=== PATIENT | female | born 1955 | race Caucasian/White ===

== ENCOUNTER 2016-12-23 07:16 | Observation (INO) | payer SELFPAY ==
[~2016-12-23] VITALS: Ht 154.9 cm; Wt 61.0 kg
[~2016-12-23 07:16] MED LIST: CEPH500C3 PO
[2016-12-23 07:20] VITALS: BP 119/63; PULSE 77; RESP 12; TEMP 98.6; O2SAT 97
[2016-12-23] MEDS ORDERED: LISI10TA3 PO (07:37)
[2016-12-23] MEDS ORDERED: ASPIRIN 325 MG TAB PO ONE (07:45)
[2016-12-23 08:03] LABS: AUTOMATED NEUTROPHIL # 3.3 TH/MM3 (1.8-7.7); BASOPHIL # 0.1 TH/MM3 (0-0.2); BASOPHIL % 0.8 % (0.0-2.0); EOSINOPHIL # 0.1 TH/MM3 (0-0.4); EOSINOPHIL % 1.3 % (0.0-4.0); HEMATOCRIT 40.5 % (35.0-46.0); HEMO FLAGS DIFF FINAL; LYMPH % 43.1 % (9.0-44.0); MEAN CELL VOLUME 87.5 FL (80.0-100.0); MEAN CORPUSCULAR HEMOGLOBIN 29.6 PG (27.0-34.0); MEAN CORPUSCULAR HGB CONC 33.8 % (32.0-36.0); NEUT % 47.8 % (16.0-70.0); PLATELET COUNT 241 TH/MM3 (150-450); RED BLOOD COUNT 4.63 MIL/MM3 (4.00-5.30); RED CELL DISTRIBUTION WIDTH 13.7 % (11.6-17.2); WHITE BLOOD COUNT 6.9 TH/MM3 (4.0-11.0)
--- NOTE | 2016-12-23 08:03 | PD ---
HPI Chief Complaint: Chest Pain Time Seen by Provider: 07:36 Travel History International Travel<30 days: No Contact w/Intl Traveler<30days: No Traveled to known affect area: No History of Present Illness HPI 61yo F with PMH of HTN presents to the ED with c/o chest pain for 2 days. Chest pain is midsternal, intermittent and associated with nausea and sob. Had some tingling in left fingers. Chest pain lasts minutes at a time and worst with exertion. Denies any fever, cough, vomiting, abdominal pain, focal weakness or numbness. Denies any cig smoking, cocaine use or history of heart attacks. Pt has never had this pain before. PFSH Past Medical History Hypertension: Yes Past Surgical History Gynecologic Surgery: Yes (caesarian) Other Surgery: Yes (laproscopic shoulders) Social History Alcohol Use: No Tobacco Use: No Substance Use: No Allergies-Medications (Allergen,Severity, Reaction): Coded Allergies: Latex (Verified Allergy, Unknown, Anaphylaxis, 12/23/16) Reported Meds & Prescriptions Reported Meds & Active Scripts Active Reported Lisinopril 10 Mg Tab 10 Mg PO DAILY Review of Systems Except as stated in HPI: all other systems reviewed are Neg Physical Exam Narrative GENERAL: 61yo F not in distress. SKIN: Focused skin assessment warm/dry. HEAD: Atraumatic. Normocephalic. EYES: Pupils equal and round. No scleral icterus. No injection or drainage. ENT: No nasal bleeding or discharge. Mucous membranes pink and moist. NECK: Trachea midline. No JVD. CARDIOVASCULAR: Regular rate and rhythm. No murmur appreciated. RESPIRATORY: No accessory muscle use. Clear to auscultation. GASTROINTESTINAL: Abdomen soft, non-tender, nondistended. No rebound tenderness or guarding. MUSCULOSKELETAL: No obvious deformities. No clubbing. No cyanosis. No edema. NEUROLOGICAL: Awake and alert. No obvious cranial nerve deficits. Motor grossly within normal limits. Normal speech. PSYCHIATRIC: Appropriate mood and affect; insight and judgment normal. Data Data Last Documented VS Vital Signs Date Time Temp Pulse Resp B/P Pulse Ox O2 Delivery O2 Flow Rate FiO2 12/23/16 07:31 69 19 97 Nasal Cannula 2 12/23/16 07:20 98.6 119/63 Orders Basic Metabolic Panel (Bmp) (12/23/16 07:44) Ckmb (Isoenzyme) Profile (12/23/16 07:44) Complete Blood Count With Diff (12/23/16 07:44) Magnesium (Mg) (12/23/16 07:44) Prothrombin Time / Inr (Pt) (12/23/16 07:44) Act Partial Throm Time (Ptt) (12/23/16 07:44) Troponin I (12/23/16 07:44) Lipase (12/23/16 07:44) Chest, Single Ap (12/23/16 07:44) Aspirin (Aspirin) (12/23/16 07:45) Labs Laboratory Tests Test 12/23/16 07:51 White Blood Count 6.9 TH/MM3 Red Blood Count 4.63 MIL/MM3 Hemoglobin 13.7 GM/DL Hematocrit 40.5 % Mean Corpuscular Volume 87.5 FL Mean Corpuscular Hemoglobin 29.6 PG Mean Corpuscular Hemoglobin 33.8 % Concent Red Cell Distribution Width 13.7 % Platelet Count 241 TH/MM3 Mean Platelet Volume 9.9 FL Neutrophils (%) (Auto) 47.8 % Lymphocytes (%) (Auto) 43.1 % Monocytes (%) (Auto) 7.0 % Eosinophils (%) (Auto) 1.3 % Basophils (%) (Auto) 0.8 % Neutrophils # (Auto) 3.3 TH/MM3 Lymphocytes # (Auto) 3.0 TH/MM3 Monocytes # (Auto) 0.5 TH/MM3 Eosinophils # (Auto) 0.1 TH/MM3 Basophils # (Auto) 0.1 TH/MM3 CBC Comment DIFF FINAL Differential Comment Prothrombin Time 10.6 SEC Prothromb Time International 1.0 RATIO Ratio Activated Partial 24.5 SEC Thromboplast Time Sodium Level 143 MEQ/L Potassium Level 3.9 MEQ/L Chloride Level 110 MEQ/L Carbon Dioxide Level 25.3 MEQ/L Anion Gap 8 MEQ/L Blood Urea Nitrogen 17 MG/DL Creatinine 0.59 MG/DL Estimat Glomerular Filtration 104 ML/MIN Rate Random Glucose 85 MG/DL Calcium Level 8.4 MG/DL Magnesium Level 2.4 MG/DL Total Creatine Kinase 48 U/L Troponin I LESS THAN 0.02 NG/ML Lipase 250 U/L MDM Medical Decision Making Medical Screen Exam Complete: Yes Emergency Medical Condition: Yes Interpretation(s) EKG: NSR 70bpm. 1st AV block. Normal axis. Q wave V1, V2. No ST segment elevation or depression. Laboratory Tests Test 12/23/16 07:51 White Blood Count 6.9 TH/MM3 (4.0-11.0) Red Blood Count 4.63 MIL/MM3 (4.00-5.30) Hemoglobin 13.7 GM/DL (11.6-15.3) Hematocrit 40.5 % (35.0-46.0) Mean Corpuscular Volume 87.5 FL (80.0-100.0) Mean Corpuscular Hemoglobin 29.6 PG (27.0-34.0) Mean Corpuscular Hemoglobin 33.8 % Concent (32.0-36.0) Red Cell Distribution Width 13.7 % (11.6-17.2) Platelet Count 241 TH/MM3 (150-450) Mean Platelet Volume 9.9 FL (7.0-11.0) Neutrophils (%) (Auto) 47.8 % (16.0-70.0) Lymphocytes (%) (Auto) 43.1 % (9.0-44.0) Monocytes (%) (Auto) 7.0 % (0.0-8.0) Eosinophils (%) (Auto) 1.3 % (0.0-4.0) Basophils (%) (Auto) 0.8 % (0.0-2.0) Neutrophils # (Auto) 3.3 TH/MM3 (1.8-7.7) Lymphocytes # (Auto) 3.0 TH/MM3 (1.0-4.8) Monocytes # (Auto) 0.5 TH/MM3 (0-0.9) Eosinophils # (Auto) 0.1 TH/MM3 (0-0.4) Basophils # (Auto) 0.1 TH/MM3 (0-0.2) CBC Comment DIFF FINAL Differential Comment Prothrombin Time 10.6 SEC (9.8-11.6) Prothromb Time International 1.0 RATIO Ratio Activated Partial 24.5 SEC Thromboplast Time (24.3-30.1) Sodium Level 143 MEQ/L (136-145) Potassium Level 3.9 MEQ/L (3.5-5.1) Chloride Level 110 MEQ/L (98-107) Carbon Dioxide Level 25.3 MEQ/L (21.0-32.0) Anion Gap 8 MEQ/L (5-15) Blood Urea Nitrogen 17 MG/DL (7-18) Creatinine 0.59 MG/DL (0.50-1.00) Estimat Glomerular Filtration 104 ML/MIN Rate (>89) Random Glucose 85 MG/DL (74-106) Calcium Level 8.4 MG/DL (8.5-10.1) Magnesium Level 2.4 MG/DL (1.5-2.5) Total Creatine Kinase 48 U/L (26-192) Troponin I LESS THAN 0.02 NG/ML (0.02-0.05) Lipase 250 U/L (73-393) Last Impressions Chest X-Ray 12/23/16 5761 Signed Impressions: Service Date/Time: Friday, December 23, 2016 08:02 - CONCLUSION: 1. No acute cardiopulmonary findings. Elliott Bundy MD Differential Diagnosis ACS vs. GERD vs. musculoskeletal pain Narrative Course 61yo F with typical chest pain that is worst with exertion. Pt is low risk but does have HTN and is 61yo. She has never had any cardiac work up. Labs reviewed, no leukocytosis. Troponin negative. Lipase normal. CXR negative. VS stable. Pt given aspirin 325mg PO and reevaluated at bedside. Pt feels better and currently has no chest pain. Will admit pt to chest pain center for serial EKG and cardiac enzyme. Diagnosis Primary Impression: Chest pain Qualified Code: R07.9 - Chest pain, unspecified type Admitting Information Admitting Physician Requests: Savannah Andres DO Dec 23, 2016 08:03
[2016-12-23 08:11] LABS: APTT (PATIENT) 24.5 SEC (24.3-30.1); PROTHROMBIN TIME - PATIENT 10.6 SEC (9.8-11.6)
[2016-12-23 08:21] LABS: ANION GAP 8 MEQ/L (5-15); BICARBONATE 25.3 MEQ/L (21.0-32.0); BLOOD UREA NITROGEN 17 MG/DL (7-18); CHLORIDE 110 MEQ/L (98-107); GLOMERULAR FILTRATION RATE 104 ML/MIN (>89); MAGNESIUM 2.4 MG/DL (1.5-2.5); POTASSIUM 3.9 MEQ/L (3.5-5.1); SODIUM (NA) 143 MEQ/L (136-145)
--- NOTE | 2016-12-23 08:32 | RADRPT ---
EXAM DATE/TIME: 12/23/2016 08:02 [facility] COMPARISON: No previous studies available for comparison. INDICATIONS : Chest pain, shortness of breath. MEDICAL HISTORY : Hypertension. SURGICAL HISTORY : None. ENCOUNTER: Initial ACUITY: 2 days PAIN SCORE: 10/10 LOCATION: Left chest under breast. FINDINGS: A single view of the chest demonstrates the lungs to be symmetrically aerated without evidence of mas s, infiltrate or effusion. The cardiomediastinal contours are unremarkable. Osseous structures are intact. CONCLUSION: 1. No acute cardiopulmonary findings. Elliott Bundy MD on December 23, 2016 at 8:30 Board Certified Radiologist. This report was verified electronically.
[2016-12-23 08:35] LABS: CREATINE KINASE 48 U/L (26-192)
--- NOTE | 2016-12-23 09:12 | HHI.HP ---
HPI Primary Care Physician No Primary Care Physician Chief Complaint Chest pain History of Present Illness This is a 61-year-old female with primary language of Albanian but does also speak Lebanese that presents to ED with a complaint of 2 days of intermittent left-sided chest discomfort. She describes a heaviness. We'll last about 30 minutes. On one occasion occurred while she is doing some gardening. We'll shortness of breath. No nausea or diaphoresis. Has history of hypertension and takes lisinopril for that. Thinks she may been told one point she has hyperlipidemia but does not take medication for that. Only family history of CAD is with her father. She states her father had [place] at age 94. Patient is a lifetime nonsmoker. She has had a nonproductive cough intermittently over the last week. Last episode of chest discomfort was 2 days ago. Review of Systems General: Patient denies fevers, chills recent, and recent travel HEENT: Patient denies headache, sore throat, difficulty swallowing. Cardiovascular: Has the chest discomfort as mentioned above. Denies sensation of heart beating rapidly or irregularly. No syncope. Respiratory: Intermittent shortness of breath. She also has had a nonproductive cough intermittently for the last week. Denies inspirational chest discomfort. Denies wheezing or hemoptysis. GI: Patient denies nausea, vomiting, diarrhea, abdominal pain, bloody stools. Musculoskeletal: Patient denies joint pain or edema. Denies calf pain or edema. Neurovascular: Patient denies numbness, tingling, weakness in extremities. Denies headache. Endocrine: Denies polyuria and polydipsia. Hematologic: Denies easy bruising. Skin: Denies rash or itching. Past Family Social History Allergies: Coded Allergies: Latex (Verified Allergy, Unknown, Anaphylaxis, 12/23/16) Past Medical History Hypertension. Questionable hyperlipidemia. Denies diabetes and CAD. Lifetime nonsmoker. Past Surgical History and bilateral shoulders. Reported Medications Reported Meds & Active Scripts Active Reported Lisinopril 10 Mg Tab 10 Mg PO DAILY Active Ordered Medications Current Medications Medications (Trade) Dose Ordered Sig/Donna Route Start Time Stop Time Status Last Admin (NS Flush) 2 ml UNSCH PRN IVF 12/23/16 09:15 UNV (NS Flush) 2 ml BID IVF 12/23/16 21:00 UNV Family History Follow had an [place] at age 89. Social History Patient is a lifetime nonsmoker. Denies alcohol or illicit drugs. Physical Exam Vital Signs Vital Signs Date Time Temp Pulse Resp B/P Pulse Ox O2 Delivery O2 Flow Rate FiO2 12/23/16 07:31 69 19 97 Nasal Cannula 2 12/23/16 07:20 98.6 77 12 119/63 97 Physical Exam GENERAL: This is a well-nourished, well-developed patient, in no apparent distress. Patient speaks in clear complete sentences. Patient is pleasant. HEENT: Head is atraumatic and normocephalic. Neck is supple without lymphadenopathy and trachea is midline. No JVD or carotid bruits. CARDIOVASCULAR: Regular rate and rhythm without murmurs, gallops, or rubs. RESPIRATORY: Clear to auscultation. Breath sounds equal bilaterally. No wheezes , rales, or rhonchi. Chest wall is nontender. No use of accessory muscles. GASTROINTESTINAL: Abdomen is nontender, nondistended. Abdomen soft. No obvious pulsatile mass or bruit. No CVA tenderness. Strong femoral pulses bilaterally. Normal bowel sounds in all quadrants. MUSCULOSKELETAL: Patient is moving upper and lower extremities freely. No calf tenderness or edema, no Homans sign. Strong pulses in upper and lower extremities. NEUROLOGICAL: Patient is alert and oriented. Cranial nerves 2-12 are grossly intact. No focal deficits and speech is clear. SKIN: No rash and turgor is normal. Laboratory Laboratory Tests Test 12/23/16 07:51 White Blood Count 6.9 Red Blood Count 4.63 Hemoglobin 13.7 Hematocrit 40.5 Mean Corpuscular Volume 87.5 Mean Corpuscular Hemoglobin 29.6 Mean Corpuscular Hemoglobin 33.8 Concent Red Cell Distribution Width 13.7 Platelet Count 241 Mean Platelet Volume 9.9 Neutrophils (%) (Auto) 47.8 Lymphocytes (%) (Auto) 43.1 Monocytes (%) (Auto) 7.0 Eosinophils (%) (Auto) 1.3 Basophils (%) (Auto) 0.8 Neutrophils # (Auto) 3.3 Lymphocytes # (Auto) 3.0 Monocytes # (Auto) 0.5 Eosinophils # (Auto) 0.1 Basophils # (Auto) 0.1 CBC Comment DIFF FINAL Differential Comment Prothrombin Time 10.6 Prothromb Time International 1.0 Ratio Activated Partial 24.5 Thromboplast Time Sodium Level 143 Potassium Level 3.9 Chloride Level 110 Carbon Dioxide Level 25.3 Anion Gap 8 Blood Urea Nitrogen 17 Creatinine 0.59 Estimat Glomerular Filtration 104 Rate Random Glucose 85 Calcium Level 8.4 Magnesium Level 2.4 Total Creatine Kinase 48 Troponin I LESS THAN 0.02 Lipase 250 Result Diagram: 12/23/16 0751 12/23/16 0751 Imaging Last Impressions Chest X-Ray 12/23/16 0744 Signed Impressions: Service Date/Time: Friday, December 23, 2016 08:02 - CONCLUSION: 1. No acute cardiopulmonary findings. Elliott Bundy MD Course Initial EKG has sinus rhythm without significant ST segment depressions or elevations. Assessment and Plan Assessment and Plan * Atypical chest pain: Patient will continue to have serial cardiac enzymes and EKGs for ruling out purposes. She has been seen by Dr. Sands of cardiology in the chest pain center and will undergo ETT if she rules out. Patient will be discharged home if her stress test were to be nonischemic and will be instructed to follow-up with her primary care physician. * Hypertension: Continue current medication. Patient is stable at this time. She is agreeable to this plan. Travon Christopher Dec 23, 2016 09:12
[2016-12-23] MEDS ORDERED: ACETAMINOPHEN 500 MG CPLT PO PRN (09:15)
[2016-12-23] MEDS ORDERED: ONDANSETRON HCL 4 MG/2 ML VIAL IV PRN (09:15)
[2016-12-23] MEDS ORDERED: SODIUM CHLORIDE 0.9% FLUSH 5 ML FLUSH IVF PRN (09:15)
[2016-12-23] MEDS ORDERED: ACETAMINOPHEN/HYDROcodone 325 MG/7.5 MG TAB PO PRN (09:15)
[2016-12-23 09:24] VITALS: BP 128/62; PULSE 70; RESP 18; O2SAT 97
[2016-12-23 10:14] VITALS: BP 119/57; PULSE 69; RESP 18; TEMP 97.4; O2SAT 95
[2016-12-23 11:18] LABS: CREATINE KINASE 44 U/L (26-192)
--- NOTE | 2016-12-23 12:04 | HHI.DCPOC ---
Discharge Care Plan Diagnosis: (1) Chest pain (2) Hypertension Goals to Promote Your Health * To prevent worsening of your condition and complications * To maintain your health at the optimal level Directions to Meet Your Goals Take your medications as prescribed Follow your dietary instruction Follow activity as directed Keep your appointments as scheduled Take your immunizations and boosters as scheduled If your symptoms worsen call your PCP, if no PCP go to Urgent Care Center or Emergency Room Smoking is Dangerous to Your Health. Avoid second hand smoke Call the 24-hour hour crisis hotline for domestic abuse at Travon Christopher Dec 23, 2016 12:04
--- NOTE | 2016-12-23 15:40 | EKG ---
Date Performed: 12/23/2016 Time Performed: 07:30:25 PTAGE: 61 years EKG: Sinus rhythm WITH FIRST DEGREE AV BLOCK ABNORMAL ECG NO PREVIOUS TRACING DOCTOR: Neyda Sands Interpretating Date/Time 12/23/2016 15:38:31
--- NOTE | 2016-12-23 15:40 | EKG ---
Date Performed: 12/23/2016 Time Performed: 11:09:50 PTAGE: 61 years EKG: Sinus rhythm NORMAL ECG Since previous tracing, no significant change noted NO PREVIOUS TRACING DOCTOR: Neyda Sands Interpretating Date/Time 12/23/2016 15:38:53
--- NOTE | 2016-12-23 15:40 | TR ---
Date Performed: 12/23/2016 Time Performed: 11:48:43 DOCTOR: Neyda Sands DRUG LIST: CLINICAL HISTORY: JAMES PAIN REASON FOR TEST: REASON FOR ENDING: OBSERVATION: CONCLUSION: CONNIE PROTOCOL CONVERTED TO MANUAL. NO CP. TEST STOPPED AFTER REACHING GOAL HR SECON JUDIT TO SOB AND LEG FATIGUE.Maximum PG=517 % Max HR Achieved=89.0% Maximum DE=265/80 Total Exercise T pedro=5:31 COMMENTS:
[2016-12-23] MEDS ORDERED: SODIUM CHLORIDE 0.9% FLUSH 5 ML FLUSH IVF SCH (21:00)
[2016-12-24] MEDS ORDERED: ASPIRIN 325 MG TAB PO SCH (09:00)
== END 2016-12-23 12:51 | disposition home or self-care (01) ==
LOC: NEPC 07:16 → NEDA 08:48 → NEPHCDU 09:53 → UNDODISOB 12:51
PROVIDERS: ADMIT Internal Medicine Interventional Cardiology; ATTEND Internal Medicine Interventional Cardiology
DX: R07.89 Other chest pain (principal); I10 Essential (primary) hypertension; Z91.040 Latex allergy status; Z82.49 Family history of ischemic heart disease and other diseases of the circulatory system
CPT/HCPCS: 71010; 80048; 82550; 83690; 83735; 84484; 85025; 85610; 85730; 93005; 93017; 99285; G0378

== ENCOUNTER 2017-08-27 16:56 | Observation (INO) | payer OTHER ==
[~2017-08-27] VITALS: Ht 152.4 cm; Wt 61.6 kg
[~2017-08-27 16:56] MED LIST changes: -CEPH500C3 PO; +LISI10TA3 PO
[2017-08-27 16:57] VITALS: BP 130/63; PULSE 101; RESP 16; TEMP 98; O2SAT 96
[2017-08-27 18:07] VITALS: BP 187/75; PULSE 96; RESP 18; O2SAT 97
[2017-08-27 18:08] VITALS: BP 187/75; PULSE 96; RESP 18; O2SAT 96
[2017-08-27] MEDS ORDERED: ONDANSETRON HCL 4 MG/2 ML VIAL IV PUSH ONE (18:15)
[2017-08-27] MEDS ORDERED: SODIUM CHLORIDE 0.9% FLUSH 10 ML FLUSH IV FLUSH PRN ×2 (18:15→21:30)
[2017-08-27] MEDS ORDERED: SODIUM CHLOR 0.9% 1000 ML INJ 1,000 ML IV ONE (18:15)
[2017-08-27] MEDS ORDERED: MORPHINE SULFATE 2 MG/ML INJ IV PUSH ONE (18:15)
--- NOTE | 2017-08-27 18:17 | PD ---
HPI Chief Complaint: Abdominal Pain Time Seen by Provider: 18:09 Travel History International Travel<30 days: Yes Contact w/Intl Traveler<30days: Yes Name of Country Traveled to: [place] Traveled to known affect area: No History of Present Illness HPI 62-year-old female patient with history of previous , presents to the ER today because of 2 days history of left upper quadrant abdominal pains which she currently measures at a 7 out of 10, nausea, worse with trying to make a bowel movement. She denies any fevers, urinary symptoms, unusual discharge, or any other issues. She states that she was seen by urgent care and told to come to the ER for further evaluation. Modifying Factors: None Associated Signs & Symptoms: Left lower quadrant abdominal pain with nausea Risk Factors: None PFSH Past Medical History Medical History: Denies Significant Hx Diabetes: Yes (Diet control) Patient Takes Glucophage: No Hypertension: Yes Influenza Vaccination: No ?: Not Past Surgical History Section: Yes Gynecologic Surgery: Yes (caesarian) Other Surgery: Yes (laproscopic shoulders; BREAST AUGMENTATION) Social History Alcohol Use: No Tobacco Use: No Substance Use: No Allergies-Medications (Allergen,Severity, Reaction): Coded Allergies: latex (Unverified Allergy, Unknown, Anaphylaxis, 08/27/17) Reported Meds & Prescriptions Reported Meds & Active Scripts Active Reported Lisinopril 10 Mg Tab 10 Mg PO DAILY Review of Systems Except as stated in HPI: all other systems reviewed are Neg Physical Exam Narrative GENERAL: Well-developed elderly female patient currently in mild distress. Awake and oriented 3. SKIN: Focused skin assessment warm/dry. HEAD: Atraumatic. Normocephalic. EYES: Pupils equal and round. No scleral icterus. No injection or drainage. ENT: No nasal bleeding or discharge. Mucous membranes pink and moist. NECK: Trachea midline. No JVD. CARDIOVASCULAR: Regular rate and rhythm. No murmur appreciated. RESPIRATORY: No accessory muscle use. Clear to auscultation. Breath sounds equal bilaterally. GASTROINTESTINAL: Abdomen soft, left lower quadrant tenderness without guarding or rebound, nondistended. Hepatic and splenic margins not palpable. MUSCULOSKELETAL: No obvious deformities. No clubbing. No cyanosis. No edema. NEUROLOGICAL: Awake and alert. No obvious cranial nerve deficits. Motor grossly within normal limits. Normal speech. PSYCHIATRIC: Appropriate mood and affect; insight and judgment normal. Data Data Last Documented VS Vital Signs Date Time Temp Pulse Resp B/P (MAP) Pulse Ox O2 Delivery O2 Flow Rate FiO2 08/27/17 18:08 18 08/27/17 18:08 96 187/75 (112) 96 Room Air 08/27/17 16:57 98.0 Orders Orders Complete Blood Count With Diff (08/27/17 18:05) Comprehensive Metabolic Panel (08/27/17 18:05) Lipase (08/27/17 18:05) Urinalysis - C+S If Indicated (08/27/17 18:05) Iv Access Insert/Monitor (08/27/17 18:05) Ecg Monitoring (08/27/17 18:05) Oximetry (08/27/17 18:05) Sodium Chloride 0.9% Flush (Ns Flush) (08/27/17 18:15) Sodium Chlor 0.9% 1000 Ml Inj (Ns 1000 M (08/27/17 18:15) Ondansetron Inj (Zofran Inj) (08/27/17 18:15) Morphine Inj (Morphine Inj) (08/27/17 18:15) Ct Abd/Pel W Iv Contrast(Rout) (08/27/17 18:42) Urine Culture (08/27/17 18:15) Labs Laboratory Tests Test 08/27/17 18:15 White Blood Count 16.0 TH/MM3 Red Blood Count 4.74 MIL/MM3 Hemoglobin 14.5 GM/DL Hematocrit 42.3 % Mean Corpuscular Volume 89.1 FL Mean Corpuscular Hemoglobin 30.5 PG Mean Corpuscular Hemoglobin Concent 34.2 % Red Cell Distribution Width 13.5 % Platelet Count 251 TH/MM3 Mean Platelet Volume 9.9 FL Neutrophils (%) (Auto) 76.1 % Lymphocytes (%) (Auto) 15.5 % Monocytes (%) (Auto) 7.6 % Eosinophils (%) (Auto) 0.4 % Basophils (%) (Auto) 0.4 % Neutrophils # (Auto) 12.2 TH/MM3 Lymphocytes # (Auto) 2.5 TH/MM3 Monocytes # (Auto) 1.2 TH/MM3 Eosinophils # (Auto) 0.1 TH/MM3 Basophils # (Auto) 0.1 TH/MM3 CBC Comment DIFF FINAL Differential Comment Urine Color YELLOW Urine Turbidity CLEAR Urine pH 5.5 Urine Specific Barton 1.022 Urine Protein TRACE mg/dL Urine Glucose (UA) NEG mg/dL Urine Ketones TRACE mg/dL Urine Occult Blood TRACE Urine Nitrite NEG Urine Bilirubin NEG Urine Urobilinogen LESS THAN 2.0 MG/DL Urine Leukocyte Esterase SMALL Urine RBC 1 /hpf Urine WBC 14 /hpf Urine Squamous Epithelial Cells 3 /hpf Urine Mucus FEW /lpf Microscopic Urinalysis Comment CULTURE INDICATED Blood Urea Nitrogen 12 MG/DL Creatinine 0.64 MG/DL Random Glucose 94 MG/DL Total Protein 8.0 GM/DL Albumin 3.4 GM/DL Calcium Level 8.5 MG/DL Alkaline Phosphatase 112 U/L Aspartate Amino Transf (AST/SGOT) 52 U/L Alanine Aminotransferase (ALT/SGPT) 42 U/L Total Bilirubin 0.5 MG/DL Sodium Level 139 MEQ/L Potassium Level 4.2 MEQ/L Chloride Level 107 MEQ/L Carbon Dioxide Level 24.8 MEQ/L Anion Gap 7 MEQ/L Estimat Glomerular Filtration Rate 94 ML/MIN Lipase 189 U/L [facility] Medical Decision Making Medical Screen Exam Complete: Yes Emergency Medical Condition: Yes Medical Record Reviewed: Yes Interpretation(s) Laboratory Tests Test 08/27/17 18:15 White Blood Count 16.0 TH/MM3 (4.0-11.0) Neutrophils (%) (Auto) 76.1 % (16.0-70.0) Neutrophils # (Auto) 12.2 TH/MM3 (1.8-7.7) Monocytes # (Auto) 1.2 TH/MM3 (0-0.9) Urine Ketones TRACE mg/dL (NEG) Urine Occult Blood TRACE (NEG) Urine Leukocyte Esterase SMALL (NEG) Urine WBC 14 /hpf (0-5) Urine Mucus FEW /lpf (OCC) Aspartate Amino Transf (AST/SGOT) 52 U/L (15-37) Differential Diagnosis Left lower quadrant abdominal pains, nausea: Gastroenteritis versus colitis versus diverticulitis versus renal colic versus pyelonephritis Narrative Course Lab work, IV fluids, and pain medications and Zofran were given in the ER. CAT scan ordered for further evaluation. Physician Communication Physician Communication Case is signed out to Dr. Yi at 7 PM pending CAT scan. Disposition based on CAT scan. Diagnosis Primary Impression: Abdominal pain Condition: Stable Dorcas Ashby MD Aug 27, 2017 18:17
[2017-08-27 18:39] LABS: AUTOMATED NEUTROPHIL # 12.2 TH/MM3 (1.8-7.7); BASOPHIL # 0.1 TH/MM3 (0-0.2); BASOPHIL % 0.4 % (0.0-2.0); EOSINOPHIL # 0.1 TH/MM3 (0-0.4); EOSINOPHIL % 0.4 % (0.0-4.0); HEMATOCRIT 42.3 % (35.0-46.0); HEMO FLAGS DIFF FINAL; LYMPH % 15.5 % (9.0-44.0); LYMPHOCYTE # 2.5 TH/MM3 (1.0-4.8); MEAN CELL VOLUME 89.1 FL (80.0-100.0); MEAN CORPUSCULAR HEMOGLOBIN 30.5 PG (27.0-34.0); MEAN CORPUSCULAR HGB CONC 34.2 % (32.0-36.0); MONO % 7.6 % (0.0-8.0); NEUT % 76.1 % (16.0-70.0); PLATELET COUNT 251 TH/MM3 (150-450); RED BLOOD COUNT 4.74 MIL/MM3 (4.00-5.30); RED CELL DISTRIBUTION WIDTH 13.5 % (11.6-17.2)
[2017-08-27 18:45] LABS: BLOOD, URINE TRACE (NEG); COMMENT (UR) CULTURE INDICATED; CULTURE IF INDICATED CULTURE INDICATED; GLUCOSE,URINE NEG (NEG); KETONE, URINE TRACE mg/dL (NEG); MUCUS URINE FEW /lpf (OCC); NITRITE,URINE NEG (NEG); PH, URINE 5.5 (5.0-8.5); SQUAMOUS EPITHELIAL CELL URINE 3 /hpf (0-5); URINE COLOR YELLOW (YELLW/STRAW)
[2017-08-27 18:55] LABS: ALT (GPT) 42 U/L (10-53)
[2017-08-27 18:57] LABS: ALKALINE PHOSPHATASE 112 U/L (45-117); TOTAL BILIRUBIN ADULT 0.5 MG/DL (0.2-1.0)
[2017-08-27 18:59] LABS: ANION GAP 7 MEQ/L (5-15); AST (GOT) 52 U/L (15-37); BICARBONATE 24.8 MEQ/L (21.0-32.0); BLOOD UREA NITROGEN 12 MG/DL (7-18); CHLORIDE 107 MEQ/L (98-107); GLOMERULAR FILTRATION RATE 94 ML/MIN (>89); SODIUM (NA) 139 MEQ/L (136-145)
[2017-08-27 19:00] LABS: POTASSIUM 4.2 MEQ/L (3.5-5.1)
[2017-08-27] MEDS ORDERED: IOHEXOL 350 MG/ML 10 ML VIAL (for RAD DIAG) IVCONTRAST ONE (19:30)
--- NOTE | 2017-08-27 20:05 | RADRPT ---
EXAM DATE/TIME: 08/27/2017 19:30 [facility] COMPARISON: No previous studies available for comparison. INDICATIONS : Left lower quadrant pain. IV CONTRAST: 99 cc Omnipaque 350 (iohexol) IV ORAL CONTRAST: No oral contrast ingested. RADIATION DOSE: 6.34 CTDIvol (mGy) MEDICAL HISTORY : Hypertension. SURGICAL HISTORY : section. ENCOUNTER: Initial ACUITY: 1 day PAIN SCALE: 2/10 LOCATION: Left Abdomen TECHNIQUE: Volumetric scanning of the abdomen and pelvis was performed. Using automated exposure control and ad justment of the mA and/or kV according to patient size, radiation dose was kept as low as reasonably achievable to obtain optimal diagnostic quality images. DICOM format image data is available electro nically for review and comparison. FINDINGS: LOWER LUNGS: The visualized lower lungs are clear. LIVER: There is an 8 mm low-density lesion within the right lobe of the liver posteriorly which is indetermi susan. There is no dilation of the biliary tree. No calcified gallstones. SPLEEN: Normal size without lesion. PANCREAS: Within normal limits. KIDNEYS: Normal in size and shape. There is no mass, stone or hydronephrosis. ADRENAL GLANDS: Within normal limits. VASCULAR: There is no aortic aneurysm. BOWEL/MESENTERY: There is evidence of wall thickening and pericolic inflammatory changes surrounding the proximal sigm oid colon consistent with acute diverticulitis. No pericolic abscess is noted. No bowel obstruction i s noted. The appendix is normal. ABDOMINAL WALL: Within normal limits. RETROPERITONEUM: There is no lymphadenopathy. BLADDER: No wall thickening or mass. REPRODUCTIVE: Within normal limits. INGUINAL: There is no lymphadenopathy or hernia. MUSCULOSKELETAL: Mild degenerative changes and scoliosis of the thoraco-lumbar spine are noted. CONCLUSION: 1. Wall thickening and pericolic inflammatory changes surrounding the proximal sigmoid colon consiste nt with acute diverticulitis. No pericolic abscess is noted. 2. 8 mm low-density lesion within the right lobe of the liver posteriorly which is indeterminate due to its small size. 3. Mild degenerative changes and scoliosis of the thoraco lumbar spine. Hany Patterson MD on August 27, 2017 at 19:59 Board Certified Radiologist. This report was verified electronically.
--- NOTE | 2017-08-27 20:27 | PD ---
Physical Exam Date Seen by Provider: Aug 27, 2017 Time Seen by Provider: 20:25 Narrative 62-year-old female was sent to the emergency room from the urgent care for left lower quadrant pain. She was seen by the previous ER physician. Please refer to her history and physical for further details. Sign out was to follow-up on the CAT scan result. Patient has significant leukocytosis. CAT scan report came back and is suggestive of acute diverticulitis. I have ordered IV ciprofloxacin and Flagyl. I went to reassess the patient and she appears to be in moderate discomfort. She says that the pain is coming back. Does not want anymore pain medications however. She does look sick. Patient has never had diverticulitis in the past. She has no primary care physician. I would like to keep her in the hospital for at least 24 hours for a few doses of IV antibiotics. Patient is agreeable with this plan. Awaiting for the hospitalist to call back. Data Data Last Documented VS Orders Orders Complete Blood Count With Diff (08/27/17 18:05) Comprehensive Metabolic Panel (08/27/17 18:05) Lipase (08/27/17 18:05) Urinalysis - C+S If Indicated (08/27/17 18:05) Iv Access Insert/Monitor (08/27/17 18:05) Ecg Monitoring (08/27/17 18:05) Oximetry (08/27/17 18:05) Sodium Chloride 0.9% Flush (Ns Flush) (08/27/17 18:15) Sodium Chlor 0.9% 1000 Ml Inj (Ns 1000 M (08/27/17 18:15) Ondansetron Inj (Zofran Inj) (08/27/17 18:15) Morphine Inj (Morphine Inj) (08/27/17 18:15) Ct Abd/Pel W Iv Contrast(Rout) (08/27/17 18:42) Urine Culture (08/27/17 18:15) Ciprofloxacin 400 Mg Premix (Cipro 400 M (08/27/17 20:30) Metronidazole 500 Mg Inj (Flagyl 500 Mg (08/27/17 20:30) Admit Order (Ed Use Only) (08/27/17 21:24) Labs Laboratory Tests Test 08/27/17 18:15 White Blood Count 16.0 TH/MM3 Red Blood Count 4.74 MIL/MM3 Hemoglobin 14.5 GM/DL Hematocrit 42.3 % Mean Corpuscular Volume 89.1 FL Mean Corpuscular Hemoglobin 30.5 PG Mean Corpuscular Hemoglobin Concent 34.2 % Red Cell Distribution Width 13.5 % Platelet Count 251 TH/MM3 Mean Platelet Volume 9.9 FL Neutrophils (%) (Auto) 76.1 % Lymphocytes (%) (Auto) 15.5 % Monocytes (%) (Auto) 7.6 % Eosinophils (%) (Auto) 0.4 % Basophils (%) (Auto) 0.4 % Neutrophils # (Auto) 12.2 TH/MM3 Lymphocytes # (Auto) 2.5 TH/MM3 Monocytes # (Auto) 1.2 TH/MM3 Eosinophils # (Auto) 0.1 TH/MM3 Basophils # (Auto) 0.1 TH/MM3 CBC Comment DIFF FINAL Differential Comment Urine Color YELLOW Urine Turbidity CLEAR Urine pH 5.5 Urine Specific [place] 1.022 Urine Protein TRACE mg/dL Urine Glucose (UA) NEG mg/dL Urine Ketones TRACE mg/dL Urine Occult Blood TRACE Urine Nitrite NEG Urine Bilirubin NEG Urine Urobilinogen LESS THAN 2.0 MG/DL Urine Leukocyte Esterase SMALL Urine RBC 1 /hpf Urine WBC 14 /hpf Urine Squamous Epithelial Cells 3 /hpf Urine Mucus FEW /lpf Microscopic Urinalysis Comment CULTURE INDICATED Blood Urea Nitrogen 12 MG/DL Creatinine 0.64 MG/DL Random Glucose 94 MG/DL Total Protein 8.0 GM/DL Albumin 3.4 GM/DL Calcium Level 8.5 MG/DL Alkaline Phosphatase 112 U/L Aspartate Amino Transf (AST/SGOT) 52 U/L Alanine Aminotransferase (ALT/SGPT) 42 U/L Total Bilirubin 0.5 MG/DL Sodium Level 139 MEQ/L Potassium Level 4.2 MEQ/L Chloride Level 107 MEQ/L Carbon Dioxide Level 24.8 MEQ/L Anion Gap 7 MEQ/L Estimat Glomerular Filtration Rate 94 ML/MIN Lipase 189 U/L [facility] Supervised Visit with SHANDA: No Diagnosis Primary Impression: Abdominal pain Qualified Codes: R10.32 - Left lower quadrant pain Additional Impressions: Acute diverticulitis Leukocytosis Qualified Codes: D72.829 - Elevated white blood cell count, unspecified Intractable pain Admitting Information Admitting Physician Requests: Admit Scripts Metronidazole (Flagyl) 500 Mg Tab 500 MG PO QID for Infection, #48 TAB 0 Refills Prov: Joaquín Nunez MD 08/28/17 Ciprofloxacin (Cipro) 500 Mg Tab 500 MG PO BID for Infection, #24 TAB 0 Refills Prov: Joaquín Nunez MD 08/28/17 Condition: Ari Obrien MD Aug 27, 2017 20:27
[2017-08-27 20:30] VITALS: BP 162/77; PULSE 92; RESP 20; O2SAT 96
[2017-08-27] MEDS ORDERED: CIPROFLOXACIN 400 MG PREMIX 200 ML IV ONE (20:30)
[2017-08-27] MEDS ORDERED: metroNIDAZOLE 500 MG INJ 100 ML IV ONE (20:30)
[2017-08-27] MEDS ORDERED: SODIUM CHLOR 0.9% 1000 ML INJ 1,000 ML IV SCH (21:24)
[2017-08-27] MEDS ORDERED: NALOXONE HCL 0.4 MG/ML AMP IV PUSH PRN (21:30)
[2017-08-27 22:00] VITALS: BP 154/69; PULSE 98; RESP 20; O2SAT 96
[2017-08-28] VITALS (11 sets, daily range): BP systolic 114–141; BP diastolic 57–74; PULSE 84–98; RESP 17–20; TEMP 96.7–98; O2SAT 95–98
--- NOTE | 2017-08-28 03:29 | HHI.HP ---
[facility] Primary Care Physician No Primary Care Physician Admission Diagnosis acute diverticulitis, intractable pain Diagnoses: Travel History International Travel<30 Days: Yes Contact w/Intl Traveler <30 Da: Yes Name of Country Traveled to: [place] Traveled to Known Affected Are: No History of Present Illness History from patient, ER physician communication, and review of medical records. abdominal pain left lower quadrant for 2 days had nausea no vomting no diarreha had subj fever no black or red stool no burning or pain on urination, no frequent, no blood in urination Apart from the above, patient denies any other symptoms. Review of Systems Except as stated in HPI: all other systems reviewed are Neg Past Family Social History Past Medical History htn - not taking meds - Past Surgical History c section x 2 laparoscopic shoulder sx bilaterally breast augmentation Allergies: Coded Allergies: latex (Unverified Allergy, Unknown, Anaphylaxis, 08/27/17) Family History none that she knows of Social History no smoking/ no drinking etoh / no drugs Physical Exam Vital Signs Vital Signs Date Time Temp Pulse Resp B/P (MAP) Pulse Ox O2 Delivery O2 Flow Rate FiO2 08/28/17 02:10 96.7 98 18 134/67 (89) 96 08/28/17 01:36 94 120/57 (78) 96 08/28/17 01:30 94 20 120/57 (78) 96 Room Air 08/28/17 00:00 98 19 127/60 (82) 96 Room Air 08/27/17 22:00 98 20 154/69 (97) 96 Room Air 08/27/17 20:30 92 20 162/77 (105) 96 Room Air 08/27/17 18:08 18 08/27/17 18:08 96 18 187/75 (112) 96 Room Air 08/27/17 18:07 96 18 187/75 (112) 97 Room Air 08/27/17 16:57 98.0 101 16 130/63 (85) 96 Room Air Physical Exam GENERAL: This is a well-nourished, well-developed patient, in no apparent distress. SKIN: No rashes, ecchymoses or lesions. Cool and dry. HEAD: Atraumatic. Normocephalic. No temporal or scalp tenderness. EYES: No scleral icterus. No injection or drainage. ENT: Nose without bleeding, purulent drainage or septal hematoma. Airway patent. NECK: Trachea midline. No JVD CARDIOVASCULAR: Regular rate and rhythm without murmurs, gallops, or rubs. RESPIRATORY: Clear to auscultation. Breath sounds equal bilaterally. No wheezes , rales, or rhonchi. GASTROINTESTINAL: Abdomen soft, nondistended. . No guarding. pain at left lower quadrant MUSCULOSKELETAL: Extremities without clubbing, cyanosis, or edema. No calf tenderness. NEUROLOGICAL: Awake and alert. Motor and sensory grossly within normal limits. Normal speech. Laboratory Laboratory Tests Test 08/27/17 18:15 White Blood Count 16.0 Red Blood Count 4.74 Hemoglobin 14.5 Hematocrit 42.3 Mean Corpuscular Volume 89.1 Mean Corpuscular Hemoglobin 30.5 Mean Corpuscular Hemoglobin Concent 34.2 Red Cell Distribution Width 13.5 Platelet Count 251 Mean Platelet Volume 9.9 Neutrophils (%) (Auto) 76.1 Lymphocytes (%) (Auto) 15.5 Monocytes (%) (Auto) 7.6 Eosinophils (%) (Auto) 0.4 Basophils (%) (Auto) 0.4 Neutrophils # (Auto) 12.2 Lymphocytes # (Auto) 2.5 Monocytes # (Auto) 1.2 Eosinophils # (Auto) 0.1 Basophils # (Auto) 0.1 CBC Comment DIFF FINAL Differential Comment Urine Color YELLOW Urine Turbidity CLEAR Urine pH 5.5 Urine Specific [place] 1.022 Urine Protein TRACE Urine Glucose (UA) NEG Urine Ketones TRACE Urine Occult Blood TRACE Urine Nitrite NEG Urine Bilirubin NEG Urine Urobilinogen LESS THAN 2.0 Urine Leukocyte Esterase SMALL Urine RBC 1 Urine WBC 14 Urine Squamous Epithelial Cells 3 Urine Mucus FEW Microscopic Urinalysis Comment CULTURE INDICATED Blood Urea Nitrogen 12 Creatinine 0.64 Random Glucose 94 Total Protein 8.0 Albumin 3.4 Calcium Level 8.5 Alkaline Phosphatase 112 Aspartate Amino Transf (AST/SGOT) 52 Alanine Aminotransferase (ALT/SGPT) 42 Total Bilirubin 0.5 Sodium Level 139 Potassium Level 4.2 Chloride Level 107 Carbon Dioxide Level 24.8 Anion Gap 7 Estimat Glomerular Filtration Rate 94 Lipase 189 Date/Time Source Procedure Growth Status 08/27/17 18:15 Urine Random Urine Urine Culture Pending Received Result Diagram: 08/27/17 1815 08/27/171814 Course Last 48 hours Impressions Abdomen/Pelvis CT 08/27/17 1842 Signed Impressions: Service Date/Time: August 19:30 - CONCLUSION: 1. Wall thickening and pericolic inflammatory changes surrounding the proximal sigmoid colon consistent with acute diverticulitis. No pericolic abscess is noted. 2. 8 mm low-density lesion within the right lobe of the liver posteriorly which is indeterminate due to its small size. 3. Mild degenerative changes and scoliosis of the thoraco lumbar spine. Hany Patterson MD Capr[place]asie VTE Risk Assessment Caprini VTE Risk Assessment: Mod/High Risk (score >= 2) Caprini Risk Assessment Model Point Value = 1 Point Value = 2 Point Value = 3 Point Value = 5 Age 41-60 Minor surgery BMI > 25 kg/m2 Swollen legs Varicose veins or History of unexplained or recurrent spontaneous Oral contraceptives or hormone replacement Sepsis (< 1 month) Serious lung disease, including pneumonia (< 1 month) Abnormal pulmonary function Acute myocardial infarction Congestive heart failure (< 1 month) History of inflammatory bowel disease Medical patient at bed rest Age 61-74 Arthroscopic surgery Major open surgery (> 45 min) Laparoscopic surgery (> 45 min) Malignancy Confined to bed (> 72 hours) Immobilizing plaster cast Central venous access Age >= 75 History of VTE Family history of VTE Factor V Leiden Prothrombin [id number] Lupus anticoagulant Anticardiolipin antibodies Elevated serum homocysteine Heparin-induced thrombocytopenia Other congenital or acquired thrombophilia Stroke (< 1 month) Elective arthroplasty Hip, pelvis, or leg fracture Acute spinal cord injury (< 1 month) Prophylaxis Regimen Total Risk Factor Score Risk Level Prophylaxis Regimen 0-1 Low Early ambulation 2 Moderate Order ONE of the following: *Sequential Compression Device (SCD) *Heparin 5000 units SQ BID 3-4 Higher Order ONE of the following medications: *Heparin 5000 units SQ TID *Enoxaparin/Lovenox 40 mg SQ daily (WT < 150 kg, CrCl > 30 mL/min) *Enoxaparin/Lovenox 30 mg SQ daily (WT < 150 kg, CrCl > 10-29 mL/min) *Enoxaparin/Lovenox 30 mg SQ BID (WT < 150 kg, CrCl > 30 mL/min) AND/OR *Sequential Compression Device (SCD) 5 or more Highest Order ONE of the following medications: *Heparin 5000 units SQ TID (Preferred with Epidurals) *Enoxaparin/Lovenox 40 mg SQ daily (WT < 150 kg, CrCl > 30 mL/min) *Enoxaparin/Lovenox 30 mg SQ daily (WT < 150 kg, CrCl > 10-29 mL/min) *Enoxaparin/Lovenox 30 mg SQ BID (WT < 150 kg, CrCl > 30 mL/min) AND *Sequential Compression Device (SCD) Assessment and Plan Assessment and Plan Impression: acute diverticulitis hx of htn- not on meds Plan: Patient received Cipro and Flagyl in ER. Continue ciprofloxacin 400 g IV every 12 hours. Continue Flagyl 500 with grams IV every 6 hours. Patient is quite nauseous and pain is still not controlled. Start patient on Toradol 15 mg IV every 6 hours when necessary for pain greater than 5. Part of her nausea is also coming from use of morphine. Will monitor patient's blood pressures while in hospital. DVT prophylaxis with Lovenox. Discussed Condition With Patient, ER physician, nursing staff Mikala Stephenson MD Aug 28, 2017 03:29
[2017-08-28] MEDS ORDERED: KETOROLAC TROMETHAMINE 30 MG/ML (IVP) VIAL IV PUSH PRN ×3 (03:30→08:30)
[2017-08-28] MEDS: metroNIDAZOLE 500 MG INJ 100 ML IV SCH ×4 (06:45→20:29)
[2017-08-28] MEDS ORDERED: cloNIDine HCL 0.1 MG TAB PO PRN (08:00)
[2017-08-28 08:09] LABS: AUTOMATED NEUTROPHIL # 12.1 TH/MM3 (1.8-7.7); BASOPHIL % 0.3 % (0.0-2.0); EOSINOPHIL % 0.1 % (0.0-4.0); HEMATOCRIT 37.9 % (35.0-46.0); LYMPH % 12.5 % (9.0-44.0); LYMPHOCYTE # 1.8 TH/MM3 (1.0-4.8); MEAN CELL VOLUME 88.8 FL (80.0-100.0); MEAN CORPUSCULAR HEMOGLOBIN 30.2 PG (27.0-34.0); MONO % 5.1 % (0.0-8.0); PLATELET COUNT 206 TH/MM3 (150-450); RED BLOOD COUNT 4.27 MIL/MM3 (4.00-5.30); RED CELL DISTRIBUTION WIDTH 13.4 % (11.6-17.2); WHITE BLOOD COUNT 14.7 TH/MM3 (4.0-11.0)
[2017-08-28 08:21] LABS: BICARBONATE 22.4 MEQ/L (21.0-32.0); POTASSIUM 3.3 MEQ/L (3.5-5.1)
[2017-08-28 08:28] LABS: HEMO FLAGS AUTO DIFF
[2017-08-28] MEDS ORDERED: ACETAMINOPHEN/HYDROcodone 325 MG/5 MG TAB PO PRN (08:30)
[2017-08-28] MEDS ORDERED: HYDROmorphone HCL PF 1 MG/ML VIAL IV PUSH PRN (08:30)
[2017-08-28] MEDS ORDERED: BISACODYL 10 MG SUPP RECTAL PRN (08:30)
[2017-08-28] MEDS ORDERED: LACTULOSE SYRUP 20 GM/30 ML CUP PO PRN (08:30)
[2017-08-28] MEDS ORDERED: MAGNESIUM HYDROXIDE SUSP 30 ML CUP PO PRN (08:30)
[2017-08-28] MEDS ORDERED: ACETAMINOPHEN/HYDROcodone 325 MG/7.5 MG TAB PO PRN (08:30)
[2017-08-28] MEDS ORDERED: ACETAMINOPHEN 325 MG TAB PO PRN ×2 (08:30)
[2017-08-28] MEDS ORDERED: ONDANSETRON HCL 4 MG/2 ML VIAL IVP PRN (08:30)
[2017-08-28] MEDS ORDERED: SENNOSIDES 8.6 MG TAB PO PRN (08:30)
--- NOTE | 2017-08-28 08:43 | HHI.PR ---
Subjective Remarks Follow-up diverticulitis. Improved abdominal pain and nausea. Aware she needs outpatient colonoscopy, avoid constipation, seeds, nuts and corns. Discussed with and RN. Objective Vitals Vital Signs Date Time Temp Pulse Resp B/P (MAP) Pulse Ox O2 Delivery O2 Flow Rate FiO2 08/28/17 03:59 97.9 84 18 131/64 (86) 97 08/28/17 02:10 96.7 98 18 134/67 (89) 96 08/28/17 01:36 94 120/57 (78) 96 08/28/17 01:30 94 20 120/57 (78) 96 Room Air 08/28/17 00:00 98 19 127/60 (82) 96 Room Air 08/27/17 22:00 98 20 154/69 (97) 96 Room Air 08/27/17 20:30 92 20 162/77 (105) 96 Room Air 08/27/17 18:08 18 08/27/17 18:08 96 18 187/75 (112) 96 Room Air 08/27/17 18:07 96 18 187/75 (112) 97 Room Air 08/27/17 16:57 98.0 101 16 130/63 (85) 96 Room Air I/O 08/27/17 08/27/17 08/27/17 08/28/17 08/28/17 08/28/17 07:00 15:00 23:00 07:00 15:00 23:00 Intake Total 0 ml 100 ml Balance 0 ml 100 ml Intake Oral 0 ml IV Total 100 ml # Voids 3 # Bowel Movements 0 Result Diagram: 08/28/17 0655 08/28/17 0655 Imaging Last Impressions Abdomen/Pelvis CT 08/27/17 1842 Signed Impressions: Service Date/Time: August 19:30 - CONCLUSION: 1. Wall thickening and pericolic inflammatory changes surrounding the proximal sigmoid colon consistent with acute diverticulitis. No pericolic abscess is noted. 2. 8 mm low-density lesion within the right lobe of the liver posteriorly which is indeterminate due to its small size. 3. Mild degenerative changes and scoliosis of the thoraco lumbar spine. Hany Patterson MD Objective Remarks GENERAL: Well-developed, well-nourished in no distress SKIN: Warm and dry. HEAD: Atraumatic. Normocephalic. EYES: Pupils equal and round. No scleral icterus. No injection or drainage. ENT: No nasal bleeding or discharge. Mucous membranes pink and moist. NECK: Trachea midline. No JVD. CARDIOVASCULAR: Regular rate and rhythm. RESPIRATORY: No accessory muscle use. Clear to auscultation. Breath sounds equal bilaterally. GASTROINTESTINAL: Abdomen soft, tender left lower quadrant, nondistended. MUSCULOSKELETAL: Extremities without clubbing, cyanosis, or edema. No obvious deformities. NEUROLOGICAL: Awake and alert. No obvious cranial nerve deficits. Motor grossly within normal limits. Five out of 5 muscle strength in the arms and legs. Normal speech. PSYCHIATRIC: Appropriate mood and affect; insight and judgment normal. Procedures None A/P Problem List: (1) Acute diverticulitis ICD Code: K57.92 - Diverticulitis of intestine, part unspecified, without perforation or abscess without bleeding Status: Acute Assessment and Plan Acute diverticulitis. Improved pain. Continue IV Cipro and Flagyl. Pain management with Lortab, Toradol and Dilaudid. Start clear liquid diet and advance as tolerated. Sepsis secondary to above. We'll monitor Right lobe liver lesion with slightly elevated AST. Outpatient follow-up Abnormal urinalysis. Follow urine culture DVT prophylaxis with SCD and ambulation. Discontinue Lovenox may need surgical intervention Discharge Planning Not ready for discharge patient needing IV antibiotics Joaquín Nunez MD Aug 28, 2017 08:43
[2017-08-28] MEDS: CIPROFLOXACIN 400 MG PREMIX 200 ML IV SCH ×2 (08:59→20:29)
[2017-08-28] MEDS ORDERED: ENOXAPARIN SODIUM 40 MG/0.4 ML SYRINGE SQ SCH (09:00)
[2017-08-28] MEDS: SODIUM CHLORIDE 0.9% FLUSH 10 ML FLUSH IV FLUSH SCH ×2 (09:00→20:31)
[2017-08-28] MEDS ORDERED: ENALAPRILAT 1.25 MG/ML VIAL IV PUSH PRN (09:00)
[2017-08-28 09:45] LABS: PLATELET ESTIMATE SMEAR NORMAL (NORMAL); PLATELET MORPHOLOGY ENLARGED (NORMAL)
[2017-08-28 09:46] LABS: SCAN/DIFF AUTO DIFF CONFIRMED
[2017-08-28] MEDS ORDERED: POTASSIUM CHLORIDE 10 MEQ CONTROLLED RELEASE TAB PO ONE (12:30)
[2017-08-28] MEDS ORDERED: CIPR-9 PO (13:57)
[2017-08-28] MEDS ORDERED: METR-1 PO (13:57)
--- NOTE | 2017-08-28 13:57 | HHI.DCPOC ---
Discharge Care Plan Diagnosis: (1) Acute diverticulitis Your Health Problems Are: Difficulty with ADL Exercise Tolerance Goals to Promote Your Health * To prevent worsening of your condition and complications * To maintain your health at the optimal level Directions to Meet Your Goals Take your medications as prescribed Follow your dietary instruction Follow activity as directed Keep your appointments as scheduled Take your immunizations and boosters as scheduled If your symptoms worsen call your PCP, if no PCP go to Urgent Care Center or Emergency Room Smoking is Dangerous to Your Health. Avoid second hand smoke Call the 24-hour hour crisis hotline for domestic abuse at Joaquín Nunez MD Aug 28, 2017 13:57
[2017-08-28] MEDS: 1/2 NS + KCL 20 MEQ INJ 1,000 ML IV SCH (17:03)
[2017-08-29] MEDS: metroNIDAZOLE 500 MG INJ 100 ML IV SCH ×2 (01:53→07:47)
[2017-08-29] MEDS: 1/2 NS + KCL 20 MEQ INJ 1,000 ML IV SCH (01:53)
[2017-08-29 03:30] VITALS: BP 121/61; PULSE 86; RESP 18; TEMP 97.2; O2SAT 97
[2017-08-29 06:17] LABS: BASOPHIL # 0.1 TH/MM3 (0-0.2); BASOPHIL % 0.6 % (0.0-2.0); EOSINOPHIL # 0.1 TH/MM3 (0-0.4); EOSINOPHIL % 0.7 % (0.0-4.0); HEMATOCRIT 38.3 % (35.0-46.0); HEMO FLAGS DIFF FINAL; LYMPH % 23.4 % (9.0-44.0); LYMPHOCYTE # 2.4 TH/MM3 (1.0-4.8); MEAN CELL VOLUME 88.9 FL (80.0-100.0); MEAN CORPUSCULAR HEMOGLOBIN 29.7 PG (27.0-34.0); MEAN CORPUSCULAR HGB CONC 33.5 % (32.0-36.0); NEUT % 68.3 % (16.0-70.0); PLATELET COUNT 232 TH/MM3 (150-450); RED BLOOD COUNT 4.31 MIL/MM3 (4.00-5.30); RED CELL DISTRIBUTION WIDTH 13.6 % (11.6-17.2); WHITE BLOOD COUNT 10.3 TH/MM3 (4.0-11.0)
[2017-08-29 06:42] LABS: ANION GAP 7 MEQ/L (5-15); AST (GOT) 18 U/L (15-37); BICARBONATE 24.8 MEQ/L (21.0-32.0); BLOOD UREA NITROGEN 5 MG/DL (7-18); CHLORIDE 110 MEQ/L (98-107); GLOMERULAR FILTRATION RATE 138 ML/MIN (>89); MAGNESIUM 2.2 MG/DL (1.5-2.5); POTASSIUM 3.7 MEQ/L (3.5-5.1); SODIUM (NA) 142 MEQ/L (136-145)
[2017-08-29 06:47] LABS: ALKALINE PHOSPHATASE 97 U/L (45-117); ALT (GPT) 30 U/L (10-53); TOTAL BILIRUBIN ADULT 0.4 MG/DL (0.2-1.0)
[2017-08-29] MEDS: CIPROFLOXACIN 400 MG PREMIX 200 ML IV SCH (07:46)
[2017-08-29] MEDS: SODIUM CHLORIDE 0.9% FLUSH 10 ML FLUSH IV FLUSH SCH (07:47)
[2017-08-29 08:00] VITALS: BP 134/65; PULSE 83; RESP 20; TEMP 96.6; O2SAT 96
--- NOTE | 2017-08-29 10:12 | HHI.PR ---
Subjective Remarks Follow-up diverticulitis. States she is doing okay tolerating soft diet. Minimal pain when she ambulates. Discussed with RN and Objective Vitals Vital Signs Date Time Temp Pulse Resp B/P (MAP) Pulse Ox O2 Delivery O2 Flow Rate FiO2 08/29/17 08:00 96.6 83 20 134/65 (88) 96 08/29/17 03:30 97.2 86 18 121/61 (81) 97 08/28/17 23:54 97.1 88 17 114/60 (78) 97 08/28/17 23:05 95 08/28/17 19:54 97.4 93 18 125/59 (81) 95 08/28/17 16:00 98.0 91 18 141/74 (96) 98 08/28/17 12:00 96.8 95 17 123/66 (85) 97 I/O 08/28/17 08/28/17 08/28/17 08/29/17 08/29/17 08/29/17 07:00 15:00 23:00 07:00 15:00 23:00 Intake Total 0 ml 1200 ml 625 ml 880 ml Balance 0 ml 1200 ml 625 ml 880 ml Intake Oral 0 ml 800 ml 525 ml 480 ml IV Total 400 ml 100 ml 400 ml # Voids 3 4 3 3 # Bowel Movements 0 0 2 0 Result Diagram: 08/29/17 0545 08/29/17 0545 Imaging Last Impressions Abdomen/Pelvis CT 08/27/17 184 Signed Impressions: Service Date/Time: August 19:30 - CONCLUSION: 1. Wall thickening and pericolic inflammatory changes surrounding the proximal sigmoid colon consistent with acute diverticulitis. No pericolic abscess is noted. 2. 8 mm low-density lesion within the right lobe of the liver posteriorly which is indeterminate due to its small size. 3. Mild degenerative changes and scoliosis of the thoraco lumbar spine. Hany Patterson MD Objective Remarks GENERAL: Well-developed, well-nourished in no distress SKIN: Warm and dry. CARDIOVASCULAR: Regular rate and rhythm. RESPIRATORY: No accessory muscle use. Clear to auscultation. Breath sounds equal bilaterally. GASTROINTESTINAL: Abdomen soft, slightly tender left lower quadrant, nondistended. MUSCULOSKELETAL: Extremities without clubbing, cyanosis, or edema. No obvious deformities. NEUROLOGICAL: Awake and alert. No obvious cranial nerve deficits. Motor grossly within normal limits. Five out of 5 muscle strength in the arms and legs. Normal speech. PSYCHIATRIC: Appropriate mood and affect; insight and judgment normal. Procedures None A/P Problem List: (1) Acute diverticulitis ICD Code: K57.92 - Diverticulitis of intestine, part unspecified, without perforation or abscess without bleeding Status: Acute Assessment and Plan Acute diverticulitis. Improved pain. Continue IV Cipro and Flagyl. Pain management with Lortab, Toradol and Dilaudid. Advance as tolerated. Possible discharge later today if she continues tolerating diet Sepsis secondary to above. We'll monitor Right lobe liver lesion with slightly elevated AST. Improved AST. Outpatient follow-up Abnormal urinalysis. Follow urine culture DVT prophylaxis with SCD and ambulation. Discharge Planning Discharge patient to home Condition on discharge: Improved Regular Diet as tolerated Ad Aleja activity no driving Rx written: Cipro and flagyl Follow-up with primary care physician and Joaquín Venegas MD Aug 29, 2017 10:12
[2017-08-29 12:00] VITALS: BP 119/58; PULSE 85; RESP 20; TEMP 96.3; O2SAT 95
== END 2017-08-29 16:02 | disposition home or self-care (01) ==
LOC: NEPC 16:56 → NEDA 21:25 → N06A 08-28 01:58
PROVIDERS: ADMIT Internal Medicine; ATTEND Internal Medicine
DX: K57.32 Diverticulitis of large intestine without perforation or abscess without bleeding (principal); A41.9 Sepsis, unspecified organism; R11.0 Nausea; R82.90 Unspecified abnormal findings in urine; I10 Essential (primary) hypertension; E11.9 Type 2 diabetes mellitus without complications; M41.84 Other forms of scoliosis, thoracic region; K76.9 Liver disease, unspecified; Z79.899 Other long term (current) drug therapy
CPT/HCPCS: 74177; 80048; 80053; 81001; 83690; 83735; 85025; 87086; 96361; 96365; 96368; 96375; 96376; 99285; G0378; J0744; J2270; J7030; Q9967